=== PATIENT | male | born 1975 | race Hispanic/Latino ===

== ENCOUNTER 2016-11-29 16:10 | Emergency (ER) | payer MEDICARE, MEDICAID ==
[2016-11-29] MEDS ORDERED: PHENYLEPHRINE HCL IV SCH (16:45)
[2016-11-29] MEDS ORDERED: Sodium Chloride 0.9% 100 ML ONE (17:24)
[2016-11-29] MEDS ORDERED: ceFAZolin Sodium 1 GM VIAL ONE (17:24)
[2016-11-29 17:35] LABS: #Eosinphils 0.1 thou/uL (0.0-0.7); #Lymphocytes 2.3 thou/uL (1.20-3.40); #Monocytes 0.5 thou/uL (0.11-0.59); #Neutrophils 3.8 thou/uL (1.40-6.50); %Basophils 0.5 % (0.0-1.0); %Eosinophils 0.9 % (0.0-10.0); %Lymphocytes 34.1 % (21.0-51.0); %Monocytes 7.6 % (0.0-10.0); Hematocrit 49.7 % (42.0-52.0); Mean Platelet Volume 6.7 fL (7.4-10.4); White Blood Cell (WBC) Count 6.7 thou/uL (4.8-10.8)
[2016-11-29 17:45] LABS: Amphetamine Not Detected (NotDetected); Methadone Not Detected (NotDetected); Methamphetamine Not Detected (NotDetected)
--- NOTE | 2016-11-29 20:40 | CON ---
DATE OF CONSULTATION: 11/29/2016 REASON FOR CONSULTATION: ER consultation regarding recurrent idiopathic priapism. HISTORY OF PRESENT ILLNESS: Mr. Skaggs is a 40-year-old male with a history of bipolar , prior history of substance abuse in the remote past, who has idiopathic recurrent ischemic priapis m. He has had multiple aspirations, distal penile shunting in 2010, and last corporal irrigation-as piration was performed 07/2016. He has been worked up by [facility] with no signifi cant pathology. He presents today with a 4-hour history of recurrent idiopathic priapism. He said he had 2-hour episodes previously in the last few days. He states that he was not engaging in sexua l activity. He has had multiple failed relationships, the patient currently is , denies caceres bstance abuse, presents to the emergency room due to recurrent priapism. PAST MEDICAL HISTORY: Bipolar with a history of alcohol dependence, history of alcoholic pancreatit is, history of recurrent priapism, diabetes, multiple suicide admissions. PAST SURGICAL HISTORY: Laparoscopic cholecystectomy, has undergone multiple aspiration irrigations stating 09/2009, 10/2009, 07/2010, 08/2010. Had distal Al-Ghorab distal shunting 09/17/2010, 2010 repeat aspiration, irrigation-aspiration in 07/2015, again in 09/02/2015, 09/06/2015, 6, 06/11/2016, last episode 07/2016. HOME MEDICATIONS: He was previously on baclofen, pseudoephedrine 60 mg 1 p.o. t.i.d. p.r.n., metfor min. ALLERGIES: No known drug allergies. REVIEW OF SYSTEMS: Ten point review of systems as above, otherwise, noncontributory. PHYSICAL EXAMINATION: VITAL SIGNS: Currently, his vital signs are stable, 147/71, 81, 18, 98, 98%, presenting pain 8/10 o n the pain scale. GENERAL: The patient appears to be in no acute distress. ABDOMEN: Soft, nontender, nondistended. GENITOURINARY: Demonstrates a rigid tumescence. The glans is soft. No significant penile curvatur es appreciated. EXTREMITIES: No cyanosis, clubbing, or edema. Testes are descended. BEDSIDE PROCEDURE: The patient's genital was formally prepped and draped and using 500 mcg per mL p henylephrine solution, we injected 1 mL increments with aspiration irrigating the corpora. Approxim ately 60 mL of venous blood was aspirated and we irrigated using 3-4 mL of phenylephrine irrigation. His blood pressure was monitored, which remained stable, asymptomatic. Complete tumescence was no miroslava with minimal ecchymosis. The patient is to resume his previous recommendations of baclofen, pse udoephedrine t.i.d. p.r.n. titrating to bedtime. He has an appointment with me tomorrow and will re assess.
== END 2016-11-29 18:44 | disposition home or self-care (01) ==
LOC: ERS 16:10
DX: N48.30 Priapism, unspecified (principal); E11.9 Type 2 diabetes mellitus without complications; E78.5 Hyperlipidemia, unspecified; F31.9 Bipolar disorder, unspecified; F17.210 Nicotine dependence, cigarettes, uncomplicated; Z79.84 Long term (current) use of oral hypoglycemic drugs; Z79.899 Other long term (current) drug therapy
CPT/HCPCS: 80306; 85025; 96365; 96375; J0690; J2370; J7050

== ENCOUNTER 2016-12-19 15:48 | Emergency (ER) | payer MEDICARE, MEDICAID ==
[2016-12-19] MEDS ORDERED: PHENYLEPHRINE-NS 100 MCG/ML 10 ML SYRINGE FS SCH (16:30)
[2016-12-19] MEDS ORDERED: Lidocaine 1% (PF) 30 ML VIAL FS SCH (16:45)
== END 2016-12-19 19:15 | disposition home or self-care (01) ==
LOC: ERS 15:48
DX: N48.30 Priapism, unspecified (principal); E11.9 Type 2 diabetes mellitus without complications; E78.5 Hyperlipidemia, unspecified; F31.9 Bipolar disorder, unspecified; F17.210 Nicotine dependence, cigarettes, uncomplicated
CPT/HCPCS: 54220; J2001

== ENCOUNTER 2016-12-29 16:00 | Emergency (ER) | payer MEDICARE, MEDICAID ==
[2016-12-29] MEDS ORDERED: PHENYLEPHRINE HCL FS SCH (16:45)
[2016-12-29] MEDS ORDERED: SODIUM CHLORIDE 0.9% FS SCH (16:45)
[2016-12-29] MEDS ORDERED: CEFAZOLIN/Water 2 GM/20 ML SYRINGE ONE (16:48)
[2016-12-29 17:12] LABS: #Basophils 0.1 thou/uL (0.0-0.2); #Eosinphils 0.1 thou/uL (0.0-0.7); #Lymphocytes 2.5 thou/uL (1.20-3.40); #Monocytes 0.6 thou/uL (0.11-0.59); #Neutrophils 3.8 thou/uL (1.40-6.50); %Basophils 1.1 % (0.0-1.0); %Eosinophils 0.9 % (0.0-10.0); %Monocytes 8.7 % (0.0-10.0); Hematocrit 52.9 % (42.0-52.0); Mean Platelet Volume 6.9 fL (7.4-10.4); Red Blood Cell (RBC) Count 5.48 mill/uL (4.70-6.10); White Blood Cell (WBC) Count 7.1 thou/uL (4.8-10.8)
[2016-12-29 17:28] LABS: ALT (SGPT) 38 U/L (8-55); AST (SGOT) 21 U/L (5-34); Alkaline Phosphatase 84 U/L (40-150); Anion Gap 15 mmol/L (10-20); BUN (Urea Nitrogen) 12 mg/dL (8.9-20.6); Bilirubin, Total 0.3 mg/dL (0.2-1.2); Calc. Creatinine Clearance 0 mL/min (70-130); Calcium 9.4 mg/dL (7.8-10.44); Carbon Dioxide 21 mmol/L (22-29); Chloride 103 mmol/L (98-107); Estimated GFR-MDRD Greater than 90; Globulin 3.7 g/dL (2.4-3.5); Protein, Total 7.9 g/dL (6.0-8.3)
[2016-12-29 17:30] LABS: Bilirubin Negative (Negative); Blood, Urine Small (Negative); Glucose, Urine (Dipstick) Negative (Negative); Ketone, Urine Negative (Negative); Nitrite Negative (Negative); Protein, Urine (Dipstick) Negative (Neg-Trace); Urobilinogen 0.2 mg/dL (0.2-1.0)
[2016-12-29 17:32] LABS: Bacteria/HPF None Seen HPF (None Seen); Hyaline Casts/LPF 0-3 HYALINE CAST LPF (0-3 Hyaline); RBC/HPF 0-3 HPF (0-3); Squamous Epithelial None Seen HPF (0-3); WBC/HPF None Seen HPF (0-3)
[2016-12-29 17:41] LABS: Amphetamine Not Detected (NotDetected); Methadone Not Detected (NotDetected); Methamphetamine Not Detected (NotDetected)
--- NOTE | 2016-12-29 20:20 | CON ---
ER CONSULTATION DATE OF CONSULTATION: 12/29/2016 HISTORY OF PRESENT ILLNESS: Kike is a 41-year-old male with history of bipolar, remote history of substance abuse, recurrent ischemic idiopathic priapism. The patient has undergone mult iple aspiration irrigation, even distal penile shunting back in 2010, presents with recurrent ischem ic priapism with no significant curvature. We previously discuss with patient regarding IPP placeme nt; however, he is unable to proceed due to lack of funds. I last saw him 11/30/2016 for recurrent priapism aspirated and irrigated uneventfully and discharged. He presents today with 4-hour history of idiopathic ischemic priapism. Denies drug use. He has a new partner at bedside. 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 PAST SURGICAL HISTORY: Laparoscopic cholecystectomy, multiple aspiration irrigation pleased date th kaye 10/07/2016, 10/17/2016, 11/05/2009, 07/2010, 08/2010, Al-Ghorab distal penile shunt of 08/2010. Irrigation aspiration 08/2010, 07/2015, 08/2015 x2, 05/2016, 07/2016, 11/29/2016. PAST MEDICAL HISTORY: As above. SOCIAL HISTORY: He is a 1 pack smoker. Recurrent drug use. MEDICATIONS: Metformin, baclofen, pseudoephedrine, simvastatin. ALLERGIES: No known drug allergies. PHYSICAL EXAMINATION: VITAL SIGNS: Current vital signs are stable. His blood pressure is stable at 130/70. Pain rated a t 8. GENERAL: The patient in mild distress, alert and oriented. HEENT: Unremarkable. HEART: Regular rate. LUNGS: Clear to auscultation. ABDOMEN: Soft, nontender, nondistended. : Obese, soft, nontender, nondistended. is circumcised. There is a full rigid erection with soft glands consistent with ischemic priapism. Testes are descended. There is no significant curva ture of the penis. The patient was formally prepped and draped with Betadine. Using an 18 gauge ne edle with a 3-way stopcock I did aspirate his corpora with dark venous blood returned approximately 100 mL aspirated. A 500 mcg of phenylephrine was utilized for irrigation, approximately 4 mL utiliz ed. His blood pressure was monitored throughout the procedure with no evidence of hypertension, no headaches. Complete detumescence was obtained. A pressure dressing was held with no significant ec chymosis. IMPRESSION AND PLAN: Mr. Skaggs is a 41-year-old male with history of recurrent ischemic priapi sm idiopathic. Hematology workup was negative. The patient has a pending Urology referral at [facility] for neurogenic etiology. He states that he would like for me to refer to one of our neur ologists. Return to clinic tomorrow for reassessment. He is to continue his baclofen 40 mg 1 p.o. at bedtime, pseudoephedrine 60 mg one p.o. q. day p.r.n.
== END 2016-12-29 17:56 | disposition home or self-care (01) ==
LOC: ERS 16:00
DX: N48.30 Priapism, unspecified (principal); E11.9 Type 2 diabetes mellitus without complications; E78.5 Hyperlipidemia, unspecified; F31.9 Bipolar disorder, unspecified; F17.210 Nicotine dependence, cigarettes, uncomplicated; Z79.84 Long term (current) use of oral hypoglycemic drugs; Z79.899 Other long term (current) drug therapy
CPT/HCPCS: 80053; 80306; 81003; 81015; 85025; 87086; 96374; 99406; A4216; J2370